=== PATIENT | female | born 1955 | race Caucasian/White ===

== ENCOUNTER → 2016-12-19 | Outpatient (CLI) | payer OTHER ==
--- NOTE | 2016-12-21 08:36 | MRI ---
MRI lumbar spine without contrast Indication: Chronic lower back pain Technique: Multiplanar, multi sequence imaging of the lumbar spine without IV contrast administratio n. Findings: There is poorly defined decreased T1 and increased T2 signal within the T12 vertebral body . There is lobulated decreased T1 signal along the inferior endplate of the T12 vertebral body seen on sagittal image 10, series 501. Linear increased signal is noted within the T12-L1 disc space as w ell. Lumbar spine alignment is maintained. The lumbar spine demonstrates no localizing bone marrow signal abnormality. Mild spondylosis at L3-4 L5-S1. Moderate disk desiccation is noted at L5-S1. No prever tebral or paraspinal soft tissue swelling or fluid collection. Conus has a normal termination. Mild multilevel facet arthropathy is noted throughout the lumbar spine; however there is no disc bulge sp inal canal or neural foraminal stenosis to the level of L3-4. At L4-5 mild broad-based disc bulge and facet arthropathy causes mild spinal canal stenosis without neural foraminal narrowing. At L5-S1 mild broad-based disc bulge and facet arthropathy causes minimal spinal canal stenosis with out neural foraminal narrowing. Impression: 1.Abnormal signal within the T12 vertebral body, this likely represents is degenerative and or a sub acute Schmorl's node; however given the ill-defined nature of the signal abnormality correlation wit h patient history of malignancy and followup lumbar spine MRI with contrast is recommended to exclud e underlying bony lesion/metastasis. 2. Refer to above for level by level description of multilevel discogenic degenerative change and fa cet arthropathy within the lumbar spine. Reported By:
== END ==
LOC: RAD 13:55
PROVIDERS: ATTEND Specialist
DX: M51.36 Other intervertebral disc degeneration, lumbar region (principal)
CPT/HCPCS: 72148

== ENCOUNTER → 2017-01-10 | Outpatient (CLI) | payer OTHER ==
[2017-01-10 14:38] LABS: CREATININE 1.8 mg/dL (0.55-1.02)
--- NOTE | 2017-01-11 07:50 | MRI ---
HISTORY: Back pain, lower thoracic compression fracture follow up Study: MRI lumbar spine without contrast Comparison: December 19, 2016 Technique: Multiplanar multi-sequence MRI of the lumbar spine was obtained. Sagittal T1, sagittal T 2, and stir weighted images, axial T1, and axial T2 images were obtained. Findings: Once again noted is a mild compression of the inferior endplate of T12. Signal characteristics demon strate increased T2 and decreased T1 signal suggestive of edema indicating the fracture is more rece nt than remote . It is unchanged in appearance from the prior examination. Slight increase tracer co ncentration within the T12-L1 disc space is also unchanged and may represent edema. The lumbar spine demonstrates normal alignment with the expected signal characteristics of the bone marrow. The con us of the cord terminates normally. T12 -- L1: No evidence for compressive disc disease. The neural foramina are patent. The joints are normal. L1 -- L2: No evidence for compressive disc disease. The neural foramina are patent. Mild facet arthr opathy is present. L2 -- L3: No evidence for compressive disc disease. The neural foramina are patent. Mild facet arthr opathy is present. L3 -- L4: No evidence for compressive disc disease. The neural foramina are patent. Mild facet arthr opathy is present. L4 -- L5: Mild concentric disk bulging contributes along with mild facet arthropathy mild lateral re cess narrowing bilaterally. Broad-based disc bulging is present. It contributes along with bilateral facet arthropathy to lateral recess and foraminal narrowing bilaterally left worse than right. L5 -- S1: Mild broad-based disk bulging is present. It contributes to mild lateral recess narrowing bilaterally left worse than right. Bilateral facet arthropathy is present. IMPRESSION: As above Reported By:
== END ==
LOC: RAD 14:05
PROVIDERS: ATTEND Specialist
DX: S22.008S Other fracture of unspecified thoracic vertebra, sequela (principal); X58.XXXS Exposure to other specified factors, sequela
CPT/HCPCS: 36415; 72148; 82565; 84520